=== PATIENT | male | born 1985 | race Caucasian/White ===

== ENCOUNTER 2017-01-25 09:55 | Day surgery (SDC) | payer BC ==
[2017-01-25] MEDS ORDERED: Lactated Ringers 1,000 ML IV SCH (10:00)
[2017-01-25] MEDS ORDERED: Sodium Chloride 0.9% 10 ML Syringe FLUSH PRN (10:00)
[2017-01-25] MEDS ORDERED: Midazolam 1 MG/ML 2 ML SDV ONE ×2 (11:07→11:08)
[2017-01-25] MEDS ORDERED: Propofol 200 MG/20 ML SDV ONE ×2 (11:08)
[2017-01-25] MEDS ORDERED: Lidocaine 2% 100 MG/5 ML Syringe ONE (11:08)
--- NOTE | 2017-01-25 11:08 | PCM.PN ---
- General Info Date of Service: 01/25/17 - Review of Systems Systems Review Comment:: 31-year-old male here for EGD and colonoscopy. He has had some recent symptoms of abdominal pain and rectal bleeding. He is medically stable to proceed today with no significant change in his health status since his last history and physical which is reviewed. I discussed the proposed upper and lower endoscopy with the patient. Risks such as but not limited to bleeding and GI injury are reviewed. He agrees to proceed. - Patient Data Vitals - most recent: Last Vital Signs Temp 98.8 F 01/25/17 10:17 Pulse 51 L 01/25/17 10:17 Resp 18 01/25/17 10:17 BP 112/77 01/25/17 10:17 Pulse Ox 99 01/25/17 10:17 Weight - most recent: 101.151 kg Med Orders - Current: Current Medications Lactated Ringer's (Ringers, Lactated) 1,000 mls @ 70 mls/hr IV ASDIRECTED ROX Last Admin: 01/25/17 10:32 Dose: 70 mls/hr Sodium Chloride (Saline Flush) 10 ml FLUSH ASDIRECTED PRN PRN Reason: Keep Vein Open - Problem List Review Problem List Initiated/Reviewed/Updated: Yes - Assessment Assessment:: Abdominal Pain Rectal Bleeding - Plan Plan:: EGD and Colonoscopy
--- NOTE | 2017-01-25 12:00 | PCM.OPNOTE ---
- General Post-Op/Procedure Note Date of Surgery/Procedure: 01/25/17 Operative Procedure(s): EGD and colonoscopy Findings: Normal upper endoscopy Minimal left sided colitis Pre Op Diagnosis: Rectal bleeding and abdominal pain Post-Op Diagnosis: mild colitis Anesthesia Technique: MAC Primary Surgeon: Alejandro Noble Pathology: none Output, Urine Amount: 0 EBL in mLs: 0 Complications: None Condition: Good Free Text/Narrative:: Intake & Output 01/24/17 01/25/17 01/25/17 22:59 06:59 14:59 Intake Total 950 Balance 950
[2017-01-25 14:27] VITALS: BP 123/84
--- NOTE | 2017-01-25 14:52 | OR ---
Date of Procedure: 01/25/2017 PREOPERATIVE DIAGNOSIS: Rectal bleeding. POSTOPERATIVE DIAGNOSIS: Minimal colitis. OPERATION PERFORMED: Esophagogastroduodenoscopy and colonoscopy. INDICATIONS FOR SURGERY: This 31-year-old male, had a recent episode of abdominal pain and bloody stools. This was a transient episode. Diagnostic upper and lower endoscopy is planned. FINDINGS: The patient's upper endoscopy was normal. No ulcers or signs of abnormality or inflammation is seen. In the colon, the patient has a minimal area level of colitis in the descending colon. This appears to have a small central ulceration and some mild hyperemia of the surrounding mucosa. There is no active bleeding at this time. This is an isolated finding and the remainder of the colon appears normal. PROCEDURE IN DETAIL: The patient was taken to the operating room. He was given intravenous sedation. With him in the left lateral decubitus position, the esophagus was intubated with the Olympus gastroscope and this was carefully advanced under direct visualization through the esophagus, stomach, and duodenal where examination to the fourth portion was performed. After carefully examining the duodenum, the scope was withdrawn back into the stomach where full examination, including retroflexed examination of the fundus was performed. After thoroughly examining the stomach. The GE junction, and esophagus were then examined as the scope was withdrawn. Attention was turned to colonoscopy. Digital rectal exam was performed showing no rectal masses. The Olympus colonoscope was inserted into the rectum. Retroflexed examination of the rectal canal was performed. The scope was then carefully advanced under direct visualization through the entire length of the colon until the cecum was reached. Cecal acquisition was confirmed by noting the normal internal cecal anatomy including the appendiceal orifice and ileocecal valve and noting the light transilluminate the abdominal wall in the right lower quadrant. The ileocecal valve was cannulated and the terminal ileum was also examined. No visible signs of inflammation or abnormalities were seen. The scope was then slowly withdrawn sequentially re-examining the colonic segments until the entire colon and rectum had been fully examined. The only colon abnormality was a limited area of apparent healing inflammation. With no sign of complicating process, the scope was removed and the patient is then taken from the operating room in satisfactory condition. ESTIMATED BLOOD LOSS: Zero. COMPLICATIONS: None. PROGNOSIS: Good. ALVARO Noble MD /[id number]
== END 2017-01-25 13:10 | disposition home or self-care (01) ==
LOC: LL.SDS 09:55
PROVIDERS: ATTEND Surgery
DX: K52.89 Other specified noninfective gastroenteritis and colitis (principal); K31.89 Other diseases of stomach and duodenum; Z98.890 Other specified postprocedural states; Z79.899 Other long term (current) drug therapy
CPT/HCPCS: 43235; 45378; J2250; J2704; J7120

== ENCOUNTER 2017-07-31 19:38 | Emergency (ER) | payer SELFPAY ==
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
[2017-07-31] MEDS ORDERED: HYDROmorphone 1 MG/ML Syringe IVPUSH ONE (20:33)
[2017-07-31 20:37] LABS: CHLORIDE,CL 102 mmol/L (98-107); SODIUM,NA 139 mmol/L (136-145)
[2017-07-31] MEDS ORDERED: Sodium Chloride 0.9% 1,000 ML IV ONE (21:17)
== END 2017-07-31 22:00 | disposition home or self-care (01) ==
LOC: LL.ED 19:38
DX: S61.210A Laceration without foreign body of right index finger without damage to nail, initial encounter (principal); S61.212A Laceration without foreign body of right middle finger without damage to nail, initial encounter; Z79.899 Other long term (current) drug therapy
CPT/HCPCS: 12001; 36415; 70450; 72125; 73100; 73120; 80048; 85025; 96361; 96374; 99283; 99285; G0390; J1170; J7030